=== PATIENT | male | born 1990 | race Caucasian/White ===

== ENCOUNTER 2020-07-14 20:11 | Emergency (ER) | payer BC ==
[2020-07-14] MEDS ORDERED: Lactated Ringers 1,000 ML IV ONE (20:24)
[2020-07-14] MEDS ORDERED: metroNIDAZOLE/Normal Saline 500 MG in Premix Bag 1 BAG IV ONE (20:24)
[2020-07-14] MEDS ORDERED: Ciprofloxacin in D5W 200 MG in Premix Bag 1 BAG IV ONE ×2 (20:24)
[2020-07-14] MEDS ORDERED: Iopamidol 612 MG/ML 100 ML Bottle IVPUSH STA (20:43)
[2020-07-14 21:07] LABS: PTT,PARTIAL THROMBOPLSTIN TIME 25.6 SEC (24.5-32.8)
--- NOTE | 2020-07-14 21:19 | EDM.PDOC ---
ED HPI GENERAL MEDICAL PROBLEM - General Chief Complaint: Abdominal Pain Stated Complaint: abdominal pain Time Seen by Provider: 07/14/20 20:11 Source of Information: Reports: Patient, Old Records ([facility] chart/EMR) History Limitations: Reports: No Limitations - History of Present Illness INITIAL COMMENTS - FREE TEXT/NARRATIVE: The patient drove himself to the emergency room via private automobile for evaluation of 2/10 at rest and 8/10 with movement right lower quadrant abdominal pain with symptoms starting at about noon yesterday. He denies any known exposure to infection, food poisoning, etc.. The patient has not had abdominal problems in the past with last bowel movement at 10 AM yesterday, which was normal. He has had progressive symptoms and some anorexia since that time with last solid oral intake at 8 AM this morning, Gatorade at 1600 hours this afternoon, and 1 beer at 1700 hrs. today. Patient did take 400 mg of ibuprofen at noon with no improvement of his symptoms. He denies any gross hematuria, colic, or other UTI symptoms. No recent history of other abdominal pain, heartburn, nausea, emesis, diarrhea, melena, gross hematochezia, or any food intolerance, including fatty foods, etc.. The patient denies any chest pain/pressure, heart flutter, dizziness, orthostasis, orthopnea, diaphoresis, paresthesias, recent decreased exercise tolerance, or any other anginal-type symptoms. The patient also denies any recent cough, wheezing, dyspnea, etc. although he has had fever and chills since 2300 hrs. yesterday evening with the patient not measuring his temperature at home. Onset: Gradual Onset Date: 07/13/20 Onset Time: 12:00 Duration: Constant, Getting Worse Location: Reports: Abdomen. Denies: Head, Face, Neck, Chest, Back, Pelvis, Upper Extremity, Left, Upper Extremity, Right, Radiates to Quality: Reports: Stabbing Severity: Moderate Improves with: Reports: Rest Worsens with: Reports: Movement Context: Reports: Other (As above). Denies: Sick Contact, Trauma Associated Symptoms: Reports: Fever/Chills, Loss of Appetite. 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 Denies: Allergic Rhinitis, Cataract, Glaucoma, Hard of Hearing, Impaired Vision, Macular Degeneration, Otitis Media, Retinal Detachment Cardiovascular History: Reports: None, Other (See Below). Denies: Afib, Aneurysm, Arrhythmia, Blood Clots/VTE/DVT, CAD, High Cholesterol, Hypertension, HI, Syncope Other Cardiovascular History: He does not know his cholesterol status. Respiratory History: Reports: None. Denies: Asthma, Bronchitis, Recurrent, COPD, Intubation, Difficult, Intubation, Previous, PE, Pneumonia, Recurrent, Pneumothorax, Sleep Apnea, TB Gastrointestinal History: Reports: None. Denies: Celiac Disease, Cholelithiasis, Chronic Constipation, Chronic Diarrhea, Colon Polyp, Fecal Incontinence, Gastritis, GERD, GI Bleed, Hepatitis, Inflammatory Bowel Disease, Irritable Bowel Syndrome, Jaundice, PUD Genitourinary History: Reports: None. Denies: Acute Renal Failure, BPH, Chronic Renal Insuffiency, Renal Calculus, STD, Urinary Incontinence, UTI, Recurrent Musculoskeletal History: Reports: Fracture, Other (See Below). Denies: Arthritis, Back Pain, Chronic, Gout, Neck Pain, Chronic, Osteoarthritis, RA, SLE Other Musculoskeletal History: Fracture of digit #3 of the right hand at the PIP joint at age 14 with no surgery required. Right scaphoid fracture secondary to a football injury in college at age 23. Neurological History: Reports: None. Denies: Cerebral Aneurysms, Concussion, CVA, Headaches, Chronic, Head Trauma, Migraines, MS, Neuropathy, Peripheral, Parkinson's, Seizure, TIA Psychiatric History: Reports: None. Denies: Abuse, Victim of, ADD, ADHD, Addiction, Anxiety, Dementia, Depression, Psych Hospitalization(s), Psychosis, PTSD, Suicide Attempt, Suicidal Ideation Endocrine/Metabolic History: Reports: None. Denies: Diabetes, Type I, Diabetes, Type II, Diabetes Mellitus, Type 3c, Hypothyroidism, IDDM Hematologic History: Reports: None. Denies: Anemia, Blood Transfusion(s) (Eject evident blood transfusion with your scaphoid fracture that you have) Immunologic History: Reports: None. Denies: AIDS, HIV, SLE Oncologic (Cancer) History: Reports: None. Denies: Basal Cell Carcinoma, Colon, Hodgkin's Lymphoma, Leukemia, Lymphoma, Malignant Melanoma, Non-Hodgkin's Lymphoma, Prostate, Squamous Cell Carcinoma Dermatologic History: Reports: None. Denies: Eczema, Psoriasis - Infectious Disease History Infectious Disease History: Reports: None. Denies: C-Difficile, Chicken Pox, Measles, Meningitis, Mononucleosis, MRSA, Mumps, Pertussis (Whooping Cough), Rheumatic Fever, Rubella, Scarlet Fever, Shingles, TB, VRE - Past Surgical History Head Surgeries/Procedures: Reports: None HEENT Surgical History: Reports: Oral Surgery, Other (See Below). Denies: Adenoidectomy, Cataract Surgery, Eye Surgery, Laser Surgery, Myringotomy w Tube(s), Naso-Sinus Surgery, Tonsillectomy Other HEENT Surgeries/Procedures: [place] teeth extraction x3 at age 22. Cardiovascular Surgical History: Reports: None. Denies: Varicose Respiratory Surgical History: Reports: None. Denies: Thoracentesis GI Surgical History: Reports: None. Denies: Appendectomy, Cholecystectomy, [place] noscopy, Hernia, Abdominal, Hernia, Inguinal, Hernia Repair/Other Male Surgical History: Reports: None. Denies: Circumcision, Vasectomy Endocrine Surgical History: Reports: None Neurological Surgical History: Reports: None. Denies: C-Spine, Discectomy, Laminectomy, Lumbar Spine, Sacral Spine, Spinal Fusion, Thoracic Spine, Vertebroplasty Musculoskeletal Surgical History: Reports: None. Denies: Arthroscopic Procedure, Carpal Tunnel, Ganglion Cyst, Joint Replacement, ORIF, Shoulder Surgery Oncologic Surgical History: Reports: None - Past Imaging History Past Imaging History: Reports: MRI (Right scapula at age 23.) Social & Family History - Tobacco Use Smoking Status *Q: Never Smoker Tobacco Use Within Last Twelve Months: No Used Tobacco, but Quit: No Smoking Cessation Information Provided To Patient: No Second Hand Smoke Exposure: No Second Hand Smoke Education Provided: No - Caffeine Use Caffeine Use: Reports: Soda (1 soda every other day). Denies: Coffee, Energy Drinks, Tea - Alcohol Use Alcohol Use History: Yes Days Per Week of Alcohol Use: 1 Number of Drinks Per Day: 2 Total Drinks Per Week: 2 Total Drinks Per Week Comment: Usually beer. No previous DWIs, problems with alcohol abuse, etc. 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 ED EXAM, GI/ABD - Physical Exam Exam: See Below Exam Limited By: No Limitations General Appearance: Alert, WD/WN, No Apparent Distress Eyes: Bilateral: Normal Appearance (No nystagmus), EOMI (PERRLA) Ears: Normal External Exam, Normal Canal, Hearing Grossly Normal, Normal TMs Nose: Normal Inspection, Normal Mucosa, No Blood Throat/Mouth: Normal Inspection, Normal Lips, Normal Teeth, Normal Gums, Normal Oropharynx, Normal Voice, No Airway Compromise. No: Dysphagia, Perioral Cyanosis Head: Atraumatic, Normocephalic. No: Facial Swelling, Facial Tenderness, Sinus Tenderness Neck: Normal Inspection, Supple, Non-Tender, Full Range of Motion. No: Carotid Bruit, Lymphadenopathy (L), Lymphadenopathy (R), Thyromegaly Respiratory/Chest: No Respiratory Distress, Lungs Clear, Normal Breath Sounds, No Accessory Muscle Use, Chest Non-Tender. No: Pleural Rub, Retractions Cardiovascular: Normal Peripheral Pulses, No Edema, No Gallop, No JVD, No Murmur, No Rub, Tachycardia (Mild secondary to fever with regular rhythm). No: Gallop/S3, Gallop/S4, Friction Rub GI/Abdominal Exam: Normal Bowel Sounds, No Organomegaly, No Distention, No Abnormal Bruit, No Mass, Pelvis Stable, Rebound (Borderline localized at right lower quadrant), Tender (Moderate right lower quadrant palpation pain). No: Guarding, Rigid (Male) Exam: Deferred Rectal (Males) Exam: Deferred Back Exam: Normal Inspection, Full Range of Motion. No: CVA Tenderness (L), CVA Tenderness (R), Muscle Spasm Extremities: Normal Inspection, Normal Range of Motion, Non-Tender, No Pedal Edema, Normal Capillary Refill. No: Beatrice's Sign Neurological: Alert, Oriented, CN II-XII Intact, Normal Cognition, Normal Gait, No Motor/Sensory Deficits Psychiatric: Normal Affect Skin Exam: Warm, Dry, Intact, Normal Color, No Rash. No: Diaphoretic, Ecchymosis, Jaundice, Pallor, Petechiae, Wound/Incision Lymphatic: No Adenopathy Course - Vital Signs Last Recorded V/S: Last Vital Signs Temp 37.2 C 07/14/20 21:25 Pulse 97 07/14/20 22:06 Resp 18 07/14/20 22:06 BP 128/82 07/14/20 22:06 Pulse Ox 98 07/14/20 22:06 Vital Signs - 24 hr 07/14/20 07/14/20 07/14/20 20:20 20:25 20:45 Temperature [ 37.8 C Temporal] Pulse, 109 H 106 H 103 H Peripheral [ Pulse Oximetry] Respiratory 18 18 Rate Blood Pressure 142/91 H 139/87 128/91 H [Left Upper Arm ] O2 Sat by Pulse 98 100 99 Oximetry 07/14/20 07/14/20 21:25 22:06 Temperature [ 37.2 C Temporal] Pulse, 97 Peripheral [ Pulse Oximetry] Respiratory 18 Rate Blood Pressure 128/82 [Left Upper Arm ] O2 Sat by Pulse 98 Oximetry - Orders/Labs/Meds Orders: Active Orders 24 hr Category Date Time Status Communication Order [RC] ROUTINE Care 07/14/20 21:43 Active Peripheral IV Care [RC] . DIRECTED Care 07/14/20 20:25 Active Nothing Per Oral Diet [DIET] Diet 07/14/20 Breakfast Active Abdomen Pelvis w Cont [CT] Stat Exams 07/14/20 20:24 Taken CULTURE BLOOD [BC] Stat Lab 07/14/20 20:40 Received CULTURE BLOOD [BC] Stat Lab 07/14/20 20:45 Received CULTURE URINE [RM] Stat Lab 07/14/20 20:59 Received Sodium Chloride 0.9% [Saline Flush] Med 07/14/20 20:24 Active 10 ml FLUSH ASDIRECTED PRN Blood Culture x2 Reflex Set [OM.PC] Urgent Oth 07/14/20 20:24 Ordered Obtain Past Medical Record [OM.PC] Urgent Oth 07/14/20 20:24 Active Peripheral IV Insertion Adult [OM.PC] Stat Oth 07/14/20 20:24 Ordered Resuscitation Status Stat Resus Stat 07/14/20 20:24 Ordered Medication Orders Sodium Chloride (Saline Flush) 10 ml FLUSH ASDIRECTED PRN PRN Reason: Keep Vein Open Last Admin: 07/14/20 22:00 Dose: 10 ml Documented by: Admin: 07/14/20 21:24 Dose: 10 ml Documented by: BRIDGETTE Labs: Laboratory Tests 07/14/20 07/14/20 07/14/20 Range/Units 20:40 20:40 20:40 WBC 19.1 H (4.0-10.2) K/uL RBC 6.11 H (4.33-5.41) M/uL Hgb 15.3 (13.1-16.8) g/dL Hct 46.1 (39.0-49.0) % MCV 75.5 L (84.0-98.0) fL MCH 25.0 L (28.2-33.3) pg MCHC 33.2 (31.7-36.0) g/dL RDW 13.7 (11.2-14.1) % Plt Count 219 (150-350) K/uL Neut % (Auto) 78.2 (45.0-80.0) % Lymph % (Auto) 8.9 L (10.0-50.0) % [place] % (Auto) 12.6 (2.0-14.0) % Eos % (Auto) 0.2 (0.0-5.0) % Baso % (Auto) 0.1 (0.0-2.0) % Neut # (Auto) 14.90 H (1.40-7.00) K/uL Lymph # (Auto) 1.70 (0.50-3.50) K/uL [place] # (Auto) 2.40 H (0.00-1.00) K/uL Eos # (Auto) 0.04 (0.00-0.50) K/uL Baso # (Auto) 0.02 (0.00-0.20) K/uL PT 11.0 (9.5-12.0) SEC INR 1.1 APTT 25.6 (24.5-32.8) SEC Sodium (136-145) mmol/L Potassium (3.5-5.1) mmol/L Chloride (98-107) mmol/L Carbon Dioxide (21.0-32.0) mmol/L BUN (7-18) mg/dL Creatinine (0.51-1.17) mg/dL Est Cr Clr Drug Dosing mL/min Estimated GFR (MDRD) mL/min Glucose (74-106) mg/dL Lactic Acid (0.4-2.0) mmol/L Uric Acid (2.6-7.2) mg/dL Calcium (8.5-10.1) mg/dL Magnesium (1.8-2.4) mg/dL Total Bilirubin (0.2-1.0) mg/dL Direct Bilirubin (0.0-0.2) mg/dL Indirect Bilirubin AST (15-37) U/L ALT (12-78) U/L Alkaline Phosphatase (46-116) IU/L Total Protein (6.4-8.2) g/dL Albumin (3.4-5.0) g/dL Amylase 45 (25-115) U/L Lipase (73-393) U/L Specimen Type Urine Color Urine Appearance Urine pH (5.0-9.0) Ur Specific [place] (1.005-1.030) Urine Protein (NEGATIVE) mg/dL Urine Glucose (UA) (NEGATIVE) mg/dL Urine Ketones (NEGATIVE) mg/dL Urine Occult Blood (NEGATIVE) Urine Nitrite (NEGATIVE) Urine Bilirubin (NEGATIVE) Urine Urobilinogen (0.2-1.0) E.U./dL Ur Leukocyte Esterase (NEGATIVE) Urine RBC /HPF Urine WBC /HPF Ur Epithelial Cells /LPF Other Crystals /HPF Urine Bacteria (NONE TO FEW) /HPF Urine Mucus (NEGATIVE) /LPF 07/14/20 07/14/20 07/14/20 Range/Units 20:40 20:40 20:40 WBC (4.0-10.2) K/uL RBC (4.33-5.41) M/uL Hgb (13.1-16.8) g/dL Hct (39.0-49.0) % MCV (84.0-98.0) fL MCH (28.2-33.3) pg MCHC (31.7-36.0) g/dL RDW (11.2-14.1) % Plt Count (150-350) K/uL Neut % (Auto) (45.0-80.0) % Lymph % (Auto) (10.0-50.0) % [place] % (Auto) (2.0-14.0) % Eos % (Auto) (0.0-5.0) % Baso % (Auto) (0.0-2.0) % Neut # (Auto) (1.40-7.00) K/uL Lymph # (Auto) (0.50-3.50) K/uL [place] # (Auto) (0.00-1.00) K/uL Eos # (Auto) (0.00-0.50) K/uL Baso # (Auto) (0.00-0.20) K/uL PT (9.5-12.0) SEC INR APTT (24.5-32.8) SEC Sodium 141 (136-145) mmol/L Potassium 3.9 (3.5-5.1) mmol/L Chloride 102 (98-107) mmol/L Carbon Dioxide 28.9 (21.0-32.0) mmol/L BUN 14 (7-18) mg/dL Creatinine 1.39 H (0.51-1.17) mg/dL Est Cr Clr Drug Dosing 92.81 mL/min Estimated GFR (MDRD) > 60 mL/min Glucose 102 (74-106) mg/dL Lactic Acid 2.1 H (0.4-2.0) mmol/L Uric Acid 4.5 (2.6-7.2) mg/dL Calcium 8.8 (8.5-10.1) mg/dL Magnesium 1.9 (1.8-2.4) mg/dL Total Bilirubin 4.0 H 4.0 H (0.2-1.0) mg/dL Direct Bilirubin 0.3 H (0.0-0.2) mg/dL Indirect Bilirubin 3.7 AST 26 (15-37) U/L ALT 41 (12-78) U/L Alkaline Phosphatase 111 (46-116) IU/L Total Protein 8.3 H (6.4-8.2) g/dL Albumin 4.2 (3.4-5.0) g/dL Amylase (25-115) U/L Lipase 95 (73-393) U/L Specimen Type Urine Color Urine Appearance Urine pH (5.0-9.0) Ur Specific [place] (1.005-1.030) Urine Protein (NEGATIVE) mg/dL Urine Glucose (UA) (NEGATIVE) mg/dL Urine Ketones (NEGATIVE) mg/dL Urine Occult Blood (NEGATIVE) Urine Nitrite (NEGATIVE) Urine Bilirubin (NEGATIVE) Urine Urobilinogen (0.2-1.0) E.U./dL Ur Leukocyte Esterase (NEGATIVE) Urine RBC /HPF Urine WBC /HPF Ur Epithelial Cells /LPF Other Crystals /HPF Urine Bacteria (NONE TO FEW) /HPF Urine Mucus (NEGATIVE) /LPF 07/14/20 Range/Units 20:59 WBC (4.0-10.2) K/uL RBC (4.33-5.41) M/uL Hgb (13.1-16.8) g/dL Hct (39.0-49.0) % MCV (84.0-98.0) fL MCH (28.2-33.3) pg MCHC (31.7-36.0) g/dL RDW (11.2-14.1) % Plt Count (150-350) K/uL Neut % (Auto) (45.0-80.0) % Lymph % (Auto) (10.0-50.0) % [place] % (Auto) (2.0-14.0) % Eos % (Auto) (0.0-5.0) % Baso % (Auto) (0.0-2.0) % Neut # (Auto) (1.40-7.00) K/uL Lymph # (Auto) (0.50-3.50) K/uL [place] # (Auto) (0.00-1.00) K/uL Eos # (Auto) (0.00-0.50) K/uL Baso # (Auto) (0.00-0.20) K/uL PT (9.5-12.0) SEC INR APTT (24.5-32.8) SEC Sodium (136-145) mmol/L Potassium (3.5-5.1) mmol/L Chloride (98-107) mmol/L Carbon Dioxide (21.0-32.0) mmol/L BUN (7-18) mg/dL Creatinine (0.51-1.17) mg/dL Est Cr Clr Drug Dosing mL/min Estimated GFR (MDRD) mL/min Glucose (74-106) mg/dL Lactic Acid (0.4-2.0) mmol/L Uric Acid (2.6-7.2) mg/dL Calcium (8.5-10.1) mg/dL Magnesium (1.8-2.4) mg/dL Total Bilirubin (0.2-1.0) mg/dL Direct Bilirubin (0.0-0.2) mg/dL Indirect Bilirubin AST (15-37) U/L ALT (12-78) U/L Alkaline Phosphatase (46-116) IU/L Total Protein (6.4-8.2) g/dL Albumin (3.4-5.0) g/dL Amylase (25-115) U/L Lipase (73-393) U/L Specimen Type Urinvoid Urine Color Dark yellow Urine Appearance Clear Urine pH 6.0 (5.0-9.0) Ur Specific [place] 1.025 (1.005-1.030) Urine Protein 30 H (NEGATIVE) mg/dL Urine Glucose (UA) Negative (NEGATIVE) mg/dL Urine Ketones 15 H (NEGATIVE) mg/dL Urine Occult Blood Negative (NEGATIVE) Urine Nitrite Negative (NEGATIVE) Urine Bilirubin Negative (NEGATIVE) Urine Urobilinogen 0.2 (0.2-1.0) E.U./dL Ur Leukocyte Esterase Negative (NEGATIVE) Urine RBC 0-5 /HPF Urine WBC 0-5 /HPF Ur Epithelial Cells Not seen /LPF Other Crystals Few /HPF Urine Bacteria Rare (NONE TO FEW) /HPF Urine Mucus Many H (NEGATIVE) /LPF Urine specimen set up for culture and sensitivity Blood cultures x2 were collected Meds: Medications Generic Name Dose Route Start Last Admin Trade Name Freq PRN Reason Stop Dose Admin Sodium Chloride 10 ml 07/14/20 20:24 07/14/20 22:00 Saline Flush FLUSH 10 ml ASDIRECTED PRN Administration Keep Vein Open Discontinued Medications Generic Name Dose Route Start Last Admin Trade Name Freq PRN Reason Stop Dose Admin Hydromorphone HCl 1 mg 07/14/20 21:26 07/14/20 21:59 Dilaudid IVPUSH 07/14/20 21:27 1 mg ONETIME ONE Administration Lactated Ringer's 1,000 mls @ 999 mls/hr 07/14/20 20:24 07/14/20 21:02 Ringers, Lactated IV 07/14/20 21:24 999 mls/hr .BOLUS ONE Administration Metronidazole 500 mg/ Premix 100 mls @ 100 mls/hr 07/14/20 20:24 07/14/20 21:24 IV 07/14/20 21:23 100 mls/hr ONETIME ONE Administration Ciprofloxacin/Dextrose 200 mg/ 100 mls @ 100 mls/hr 07/14/20 20:24 07/14/20 20:48 Premix IV 07/14/20 21:23 100 mls/hr ONETIME ONE Administration Iopamidol 100 ml 07/14/20 20:43 07/14/20 20:56 Isovue-300 (61%) IVPUSH 07/14/20 20:44 100 ml ONETIME STA Administration Ondansetron HCl 4 mg 07/14/20 21:26 07/14/20 21:59 Zofran IVPUSH 07/14/20 21:27 4 mg ONETIME ONE Administration - Radiology Interpretation Free Text/Narrative:: Telephone consultation at 21:16 hours with the radiology department at [facility]. Preliminary verbal report of CT scan of the abdomen and pelvis with IV contrast is positive for acute appendicitis with no perforation, abscess, etc. CT Results Date: 07/14/20 CT Results Time: 21:16 Departure - Departure Time of Disposition: 22:16 Disposition: DC/Tfer to Acute Hospital 02 Condition: Good Clinical Impression: Gilbert's syndrome, Microcytosis, Elevated lactic acid level Appendicitis, acute Qualifiers: Acute appendicitis type: with localized peritonitis Appendicitis gangrene presence: without gangrene Appendicitis perforation presence: without perforation Appendicitis abscess presence: without abscess Qualified Code(s): K35.30 - Acute appendicitis with localized peritonitis, without perforation or gangrene - Discharge Information *PRESCRIPTION DRUG MONITORING PROGRAM REVIEWED*: Not Applicable *COPY OF PRESCRIPTION DRUG MONITORING REPORT IN PATIENT JAMES: Not Applicable Instructions: Appendicitis, Adult, Kmhf-[id number]-Oper Referrals: PCP,None [Primary Care Provider] - Forms: ED Department Discharge, Interfacility Transfer EMTALA Additional Instructions: 1. Have your friend drive you to [facility] for direct admission and probable appendectomy 2. STRICT nothing to eat or drink until otherwise directed by [facility] physicians. Sepsis Event Note (ED) - Evaluation Sepsis Screening Result: Possible Sepsis Risk - Focused Exam Vital Signs: Vital Signs Temp Pulse Resp BP Pulse Ox 07/14/20 22:06 97 18 128/82 98 07/14/20 21:25 37.2 C 07/14/20 20:45 103 H 128/91 H 99 07/14/20 20:25 106 H 18 139/87 100 07/14/20 20:20 37.8 C 109 H 18 142/91 H 98 - Problem List & Annotations (1) Appendicitis, acute SNOMED Code(s): 21505336 Code(s): K35.80 - UNSPECIFIED ACUTE APPENDICITIS Status: Acute Priority: High Current Visit: Yes Onset Date: 07/13/20 Annotation/Comment:: Telephone consultation at [address] Gutierrez, general surgeon at [facility], who does accept the patient for direct admission and appendectomy, with no further treatment recommendations given. Patient did receive IV Cipro, IV Flagyl, and IV lactated Ringer's prior to discharge. He will be transported by a private vehicle with his friend driving. Note saline lock at discharge. IV Zofran and IV Dilaudid were given immediately prior to patient's transfer for his comfort. Sedation precautions given. Qualifiers: Acute appendicitis type: with localized peritonitis Appendicitis gangrene presence: without gangrene Appendicitis perforation presence: without perforation Appendicitis abscess presence: without abscess Qualified Code(s): K35.30 - Acute appendicitis with localized peritonitis, without perforation or gangrene (2) Elevated lactic acid level SNOMED Code(s): 6554496 Code(s): R79.89 - OTHER SPECIFIED ABNORMAL FINDINGS OF BLOOD CHEMISTRY Status: Acute Priority: High Current Visit: Yes Onset Date: 07/14/20 Annotation/Comment:: No clinical evidence of sepsis. Blood cultures x2 prior to initiation of IV Cipro and IV Flagyl were collected. Lactated Ringer's given as above. Consider repeat lactic acid level in 3 hours by accepting providers. (3) Gilbert's syndrome SNOMED Code(s): 67668311 Code(s): E80.4 - GILBERT SYNDROME Status: Acute Priority: Medium Current Visit: Yes Onset Date: 07/14/20 Annotation/Comment:: Observe for now. No other LFTs elevation with amylase and lipase normal at this time. Note some mild dehydration and ketonuria with IV lactated Ringer's given as above. (4) Microcytosis Status: Acute Priority: Medium Current Visit: Yes Onset Date: 07/14/20 Annotation/Comment:: No anemia. Further work-up depending on his clinical course. - Problem List Review Problem List Initiated/Reviewed/Updated: Yes - My Orders Last 24 Hours: My Active Orders 07/14/20 Breakfast Nothing Per Oral Diet [DIET] 07/14/20 20:24 Abdomen Pelvis w Cont [CT] Stat Sodium Chloride 0.9% [Saline Flush] 10 ml FLUSH ASDIRECTED PRN Blood Culture x2 Reflex Set [OM.PC] Urgent Obtain Past Medical Record [OM.PC] Urgent Peripheral IV Insertion Adult [OM.PC] Stat Resuscitation Status Stat 07/14/20 20:25 Peripheral IV Care [RC] . DIRECTED 07/14/20 20:40 CULTURE BLOOD [BC] Stat 07/14/20 20:45 CULTURE BLOOD [BC] Stat 07/14/20 20:59 CULTURE URINE [RM] Stat 07/14/20 21:43 Communication Order [RC] ROUTINE - Assessment/Plan Last 24 Hours: My Active Orders 07/14/20 Breakfast Nothing Per Oral Diet [DIET] 07/14/20 20:24 Abdomen Pelvis w Cont [CT] Stat Sodium Chloride 0.9% [Saline Flush] 10 ml FLUSH ASDIRECTED PRN Blood Culture x2 Reflex Set [OM.PC] Urgent Obtain Past Medical Record [OM.PC] Urgent Peripheral IV Insertion Adult [OM.PC] Stat Resuscitation Status Stat 07/14/20 20:25 Peripheral IV Care [RC] . DIRECTED 07/14/20 20:40 CULTURE BLOOD [BC] Stat 07/14/20 20:45 CULTURE BLOOD [BC] Stat 07/14/20 20:59 CULTURE URINE [RM] Stat 07/14/20 21:43 Communication Order [RC] ROUTINE Assessment:: As above Plan: As above. Extensive precautions were given to the patient, who is in agreement with the treatment plan. See Patient Instructions for further treatment and plan.
[2020-07-14 21:21] LABS: CHLORIDE,CL 102 mmol/L (98-107); SODIUM,NA 141 mmol/L (136-145)
[2020-07-14] MEDS: Sodium Chloride 0.9% 10 ML Syringe FLUSH PRN ×2 (21:24→22:00)
[2020-07-14] MEDS ORDERED: HYDROmorphone 1 MG/ML Syringe IVPUSH ONE (21:26)
[2020-07-14] MEDS ORDERED: Ondansetron 4 MG/2 ML SDV IVPUSH ONE (21:26)
== END 2020-07-14 22:16 ==
LOC: LL.ED 20:11
DX: K35.30 Acute appendicitis with localized peritonitis, without perforation or gangrene (principal); E80.4 Gilbert syndrome; R74.0 Nonspecific elevation of levels of transaminase and lactic acid dehydrogenase [LDH]; R71.8 Other abnormality of red blood cells; Z88.1 Allergy status to other antibiotic agents
CPT/HCPCS: 36415; 74177; 80053; 81001; 82150; 82247; 82248; 83605; 83690; 83735; 84550; 85025; 85610; 85730; 87040; 87086; 96365; 96368; 99285; J0744; J1170; J2405; J3490; J7120; Q9967; 96375